=== PATIENT | male | born 1995 | race Caucasian/White ===

== ENCOUNTER 2019-07-12 01:57 | Emergency (ER) | payer MEDICAID ==
[~2019-07-12] VITALS: Ht 167.6 cm; Wt 66.7 kg
[2019-07-12 02:09] VITALS: Ht 167.6 cm; Wt 66.7 kg
[2019-07-12 02:40] LABS: microscopic required? NO
[2019-07-12 02:50] LABS: UA SPECIFIC GRAVITY <=1.005 (1.005-1.035); urine erythrocyte NEGATIVE (NEGATIVE)
[2019-07-12 02:54] LABS: CALCIUM 8.1 mg/dL (8.5-10.1); CARBON DIOXIDE 25.3 mmol/L (21-32); CHLORIDE SERUM 106 mmol/L (98-107); CREATININE SERUM 0.8 mg/dL (0.7-1.3); GFR1 > 60 mL/min; GLUCOSE SERUM 98 mg/dL (74-106); POTASSIUM SERUM 3.8 mmol/L (3.5-5.1); SODIUM SERUM 143 mmol/L (136-145)
[2019-07-12 02:57] LABS: BASOPHIL % 0.6 % (0-2); PLATELET COUNT 219 x10^3mcL (130-400); RED CELL DISTRIBUTION WIDTH 12.1 % (11.5-14.5)
[2019-07-12 02:59] LABS: ALBUMIN 4.1 g/dL (3.4-5.0); ALKALINE PHOSPHATASE 105 U/L (46-116); ALT/SGPT 24 U/L (16-63); AST/SGOT 14 U/L (15-37); BILIRUBIN TOTAL 0.17 mg/dL (0.20-1.00); TOTAL PROTEIN, SERUM 7.7 g/dL (6.4-8.2)
[2019-07-12 05:54] VITALS: BP 140/77
== END 2019-07-12 05:54 | disposition home or self-care (01) ==
LOC: ED 01:57
PROVIDERS: Emergency Medicine
DX: N50.3 Cyst of epididymis (principal); J45.909 Unspecified asthma, uncomplicated; Z88.0 Allergy status to penicillin
CPT/HCPCS: 36415; Q0092

== ENCOUNTER 2020-04-16 19:20 | Emergency (ER) | payer SELFPAY ==
[~2020-04-16] VITALS: Ht 172.7 cm; Wt 68.0 kg
[2020-04-16 19:22] VITALS: BP 169/96; Ht 172.7 cm; Wt 68.0 kg
== END 2020-04-16 20:03 | disposition home or self-care (01) ==
LOC: ED 19:20
DX: U07.1 COVID-19 (principal); J12.89 Other viral pneumonia; Z88.0 Allergy status to penicillin
CPT/HCPCS: U0003-CS